=== PATIENT | male | born 1985 | race Two or more races ===

== ENCOUNTER 2019-02-22 06:42 | Emergency (ER) | payer SELFPAY ==
[~2019-02-22] VITALS: Ht 167.6 cm; Wt 84.1 kg
[2019-02-22 06:45] VITALS: Ht 167.6 cm; Wt 84.1 kg
[2019-02-22 07:43] LABS: BASOPHILS 0.2 % (0-2); HEMATOCRIT 48.2 % (42.0-54.0); HEMOGLOBIN 16.8 g/dL (13.5-17.5); IMMATURE GRANULOCYTES 0.2 % (0-5); LYMPHOCYTES 17.1 % (15-50); MCH 29.4 pg (26.0-34.0); MCHC 34.9 g/dL (31.0-37.0); MCV 84.3 fL (80.0-100.0); MEAN PLATELET VOLUME 9.6 fL (7.4-10.4); MONOCYTES 6.2 % (2-11); NEUTROPHILS 75.3 % (40-80); PLATELET COUNT 231 10x3/uL (130-400); RBC 5.72 10x6/uL (4.20-6.10); RDW 12.9 % (11.5-14.5); WBC 9.3 10x3/uL (4.8-10.8)
[2019-02-22 07:52] LABS: INR 1.01 (0.85-1.17); PROTIME 12.8 SECONDS (11.6-15.0)
[2019-02-22 07:57] LABS: ALBUMIN 3.9 g/dL (3.4-5.0); ALKALINE PHOSPHATASE 132 U/L (46-116); ALT (SGPT) 72 U/L (10-68); BILIRUBIN - TOTAL 0.29 mg/dL (0.2-1.3); CALC OSMOLALITY 283 mosm/kg (275-300); CALCIUM 8.6 mg/dL (8.5-10.1); CARBON DIOXIDE 30.9 mmol/L (21.0-32.0); CHLORIDE - SERUM 104 mmol/L (98-107); CREATININE - SERUM 0.9 mg/dL (0.6-1.3); GLUCOSE 116 mg/dL (74-106); POTASSIUM - SERUM 3.4 mmol/L (3.5-5.1); PROTEIN - SERUM 7.3 g/dL (6.4-8.2); SODIUM 141 mmol/L (136-145); UREA NITROGEN 19 mg/dL (7-18); eGFR NON AFRICAN AMERICAN > 90 mL/min (90-120)
[2019-02-22] MEDS ORDERED: IBUPROFEN800 MG PO (08:31)
[2019-02-22] MEDS ORDERED: ACETAMINOPHEN500 M1 PO (08:31)
[2019-02-22] MEDS ORDERED: CYCLOBENZAPRINE10 MG PO (08:31)
[2019-02-22 11:18] VITALS: BP 146/99
== END 2019-02-22 11:20 | disposition home or self-care (01) ==
LOC: D.ER 06:42
PROVIDERS: Family Medicine
DX: M54.6 Pain in thoracic spine (principal); M54.2 Cervicalgia; V43.52XA Car driver injured in collision with other type car in traffic accident, initial encounter; Y93.89 Activity, other specified; Y92.410 Unspecified street and highway as the place of occurrence of the external cause